=== PATIENT | female | born 1995 | race Caucasian/White ===

== ENCOUNTER 2018-06-19 16:11 | Emergency (ER) | payer MEDICAID, SELFPAY ==
[2018-06-19 16:45] VITALS: BP 133/73; PULSE 108; RESP 16; TEMP 39.4; O2SAT 99
[2018-06-19] MEDS: Ibuprofen 600 MG TAB PO (17:20)
--- NOTE | 2018-06-19 17:34 | W.ED.GENAD ---
Discharge Plan Disposition Patient Disposition: HOME Condition: Stable Discharge Details Chief Complaint: RespSymp Clinical Impression: Upper respiratory tract infection Primary Care Provider: Louisa Aguilar V ED Provider: Travon Coronado Home Meds and New Rx's Prescriptions: No Action acetaminophen [Mapap Extra Strength] 500 MG tablet 1,000 mg PO Q6H 5 Days Qty: 60 RF: 0 Ibuprofen [Motrin Ib] 200 MG Tablet 600 mg PO Q6H 5 Days Qty: 60 RF: 0 Discharge Instructions Instructions: Upper Respiratory Infection (ED) Additional Instructions: Feel free to return to the emergency department for any new or worsening symptoms otherwise stay well-hydrated and get plenty of rest during illness. You may use [id number] cough and cold medication such as Robitussin-DM, Tylenol cold and flu severe, or other symptomatic medications. If you are not improving over the next week please follow-up with your primary care provider for reassessment. Referrals: Louisa Aguilar MD [Primary Care Provider] - 1 week (If not improving) Discharge Data Discharge Date/Time-TO BE ENTERED AT DEPARTURE: 06/19/18 19:50 Medical Decision Making Patient presenting to the emergency department for chief complaint of cold symptoms for 1 day. Physical exam is consistent with upper respiratory tract infection. Patient is febrile and does state that she had a another upper respiratory tract infection that cleared up approximately 2 weeks ago. Patient does have some moderate anterior cervical lymphadenopathy so plan to check labs, give ibuprofen, and a liter of fluids and reassess patient. After review of labs which are nondiagnostic, negative mono test, and patient stating improvement after fluids and Motrin I feel that patient is safely able to be discharged for diagnosis of upper respiratory tract infection suspected viral etiology. After thorough discussion of diagnosis and plan of care with patient she states no further needs questions or concerns. Patient was encouraged to return to the emergency department for any new or significantly worsening of symptoms otherwise to follow-up with primary care in 1 week if not improving HPI General Mode of arrival: ambulatory. Date/Time Provider Initiated Documentation: 06/19/18 16:56. Limitations to Documentation: no limitations. Information obtained by: patient. History of Present Illness 22 year old F presents to the emergency department with the chief complaint of cold symptoms, described as moderate, with intensity rated at 8. Quality is described as aching, and is localized to the head, upper extremity and lower extremity. Patient started experiencing this day(s) (1) and it has been constant. No relieving factors improve symptom(s), No exacerbating factors reported . Patient did receive the following treatments prior to arrival, other (Tylenol last night) Related Data Home Medications Medication Instructions Recorded Confirmed Ibuprofen [Motrin Ib] 600 mg PO Q6H 5 Days #60 tablet 03/07/18 06/19/18 acetaminophen [Mapap Extra 1,000 mg PO Q6H 5 Days #60 tab 03/07/18 06/19/18 Strength] Previous Rx's Medication Instructions Recorded Ibuprofen [Motrin Ib] 600 mg PO Q6H 5 Days #60 tablet 03/07/18 acetaminophen [Mapap Extra 1,000 mg PO Q6H 5 Days #60 tab 03/07/18 Strength] Allergies Allergy/AdvReac Type Severity Reaction Status Date / Time oxytocin [From Pitocin] Allergy Intermediate Hives Unverified 06/19/18 16:48 General Stated Complaint: RespSymp AYSE: 3 Review of Systems Constitutional Reports body ache(s), Reports chills, Reports fever(s), Reports headache(s) and Reports malaise Eyes Denies eye discharge ENT Reports headache(s), Denies neck pain and Denies throat swelling Cardiovascular Denies chest pain and Denies dyspnea Respiratory Denies dyspnea Musculoskeletal Denies joint swelling and Denies neck pain Integumentary/Breasts Denies rash Neurologic Reports headache(s) Allergic/Immunologic Denies throat swelling PFSH Family History Mother Mental disorder Father No problems noted. Sister No problems noted. Social History Smoking/Tobacco Use Status: Never Exam Const General: cooperative, comfortable and no acute distress Orientation: alert and awake [facility] Head: normal to inspection, normocephalic and atraumatic Ears: hearing grossly normal bilaterally and TM's normal bilaterally General nose exam: external nose normal Face and sinus: no erythema, no edema and sinus tenderness frontal, ethmoid and maxillary Mouth: oral mucosae normal, no drooling, no muffled voice and no trismus Teeth and gingiva: dentition normal Throat: posterior oropharynx normal Neck Neck: normal visual inspection, full ROM, no meningeal signs, trachea midline, supple, no anterior neck swelling and lymphadenopathy (Anterior cervical bilateral) Resp Effort & Inspection: normal respiratory effort, able to speak in complete sentences and cough Quality of cough: dry Auscultation: clear to auscultation bilaterally Cardio Rate: regular rate Rhythm: regular rhythm Heart Sounds: S1 normal, S2 normal, normal S1 and S2, no click, no gallops, no murmurs and no rubs Skin General skin exam: no rashes or lesions noted and dry skin (warm) Neuro General: alert, awake, oriented x3, gait normal and moves all extremities Cognition: normal cognition Speech: speech normal Course Vital Signs Temperature 39.4 C H 06/19/18 16:45 Pulse 108 H 06/19/18 16:45 Respiratory Rate 16 06/19/18 16:45 Blood Pressure 133/73 06/19/18 16:45 Pulse Oximetry 99 06/19/18 16:45 Temperature 39.4 C H 06/19/18 16:45 Temperature Source Skin 06/19/18 16:45 Pulse 108 H 06/19/18 16:45 Respiratory Rate 16 06/19/18 16:45 Respiratory Effort Non-Labored 06/19/18 16:45 Blood Pressure 133/73 06/19/18 16:45 Blood Pressure Position Sitting 06/19/18 16:45 Pulse Oximetry 99 06/19/18 16:45 Oxygen Delivery Method Room Air 06/19/18 16:45 Oxygen Flow Rate 0 06/19/18 16:45 Pain Level 9 06/19/18 16:45
[2018-06-19] MEDS: Normal Saline 1,000 ML 1000 ML IV (17:35)
[2018-06-19 17:37] LABS: Abs Immature Grans 0.05 k/cumm (0.0-0.09); Absolute Basophil Count 0.04 k/cumm (0.0-0.2); Absolute Eosinophil Count 0.04 k/cumm (0.0-0.7); Absolute Lymphocyte Count 0.83 k/cumm (1.2-3.4); Absolute Neutrophil Count 7.22 k/cumm (1.2-6.7); Basophils % 0.5; Eosinophils % 0.5; HCT 40.8 % (36.0-46.0); HGB 14.1 g/dL (12.0-15.5); Immature Grans % 0.6; Lymphocytes % 9.3; Mean Corp. HGB Concentration 34.6 g/dL (32.0-36.0); Mean Corpuscular Hemoglobin 28.8 pg (27.0-33.0); Mean Corpuscular Volume 83.3 fL (80-95); Mean Platelet Volume 8.9 fL (8.0-11.0); Monocytes % 7.9; Neutrophils % 81.2; Platelet Count 243 x1000/uL (130-400); RBC Distribution Width 13.3 % (11.7-14.6); White Blood Cell Count 8.88 k/cumm (4.4-10.8)
--- NOTE | 2018-06-19 17:38 | ED.GENADUL_ITS ---
Discharge Plan Disposition Patient Disposition: HOME Condition: Stable Discharge Details Chief Complaint: RespSymp Clinical Impression: Upper respiratory tract infection Primary Care Provider: Louisa Aguilar V ED Provider: Travon Coronado Home Meds and New Rx's Prescriptions: No Action acetaminophen [Mapap Extra Strength] 500 MG tablet 1,000 mg PO Q6H 5 Days Qty: 60 RF: 0 Ibuprofen [Motrin Ib] 200 MG Tablet 600 mg PO Q6H 5 Days Qty: 60 RF: 0 Discharge Instructions Instructions: Upper Respiratory Infection (ED) Additional Instructions: Feel free to return to the emergency department for any new or worsening symptoms otherwise stay well-hydrated and get plenty of rest during illness. You may use [id number] cough and cold medication such as Robitussin-DM, Tylenol cold and flu severe, or other symptomatic medications. If you are not improving over the next week please follow-up with your primary care provider for reassessment. Referrals: Louisa Aguilar MD [Primary Care Provider] - 1 week (If not improving) Discharge Data Discharge Date/Time-TO BE ENTERED AT DEPARTURE: 06/19/18 19:50 Medical Decision Making Patient presenting to the emergency department for chief complaint of cold symptoms for 1 day. Physical exam is consistent with upper respiratory tract infection. Patient is febrile and does state that she had a another upper respiratory tract infection that cleared up approximately 2 weeks ago. Patient does have some moderate anterior cervical lymphadenopathy so plan to check labs , give ibuprofen, and a liter of fluids and reassess patient. After review of labs which are nondiagnostic, negative mono test, and patient stating improvement after fluids and Motrin I feel that patient is safely able to be discharged for diagnosis of upper respiratory tract infection suspected viral etiology. After thorough discussion of diagnosis and plan of care with patient she states no further needs questions or concerns. Patient was encouraged to return to the emergency department for any new or significantly worsening of symptoms otherwise to follow-up with primary care in 1 week if not improving HPI General Mode of arrival: ambulatory . Date/Time Provider Initiated Documentation: 06/19/18 16:56 . Limitations to Documentation: no limitations . Information obtained by: patient . History of Present Illness 22 year old F presents to the emergency department with the chief complaint of cold symptoms, described as moderate, with intensity rated at 8. Quality is described as aching, and is localized to the head, upper extremity and lower extremity. Patient started experiencing this day(s) (1) and it has been constant. No relieving factors improve symptom(s), No exacerbating factors reported . Patient did receive the following treatments prior to arrival, other (Tylenol last night) Related Data Home Medications Medication Instructions Recorded Confirmed Ibuprofen [Motrin Ib] 600 mg PO Q6H 5 Days #60 tablet 03/07/18 06/19/18 acetaminophen [Mapap Extra 1,000 mg PO Q6H 5 Days #60 tab 03/07/18 06/19/18 Strength] Previous Rx's Medication Instructions Recorded Ibuprofen [Motrin Ib] 600 mg PO Q6H 5 Days #60 tablet 03/07/18 acetaminophen [Mapap Extra 1,000 mg PO Q6H 5 Days #60 tab 03/07/18 Strength] Allergies Allergy/AdvReac Type Severity Reaction Status Date / Time oxytocin [From Pitocin] Allergy Intermediate Hives Unverified 06/19/18 16:48 General Stated Complaint: RespSymp AYSE: 3 Review of Systems Constitutional Reports body ache(s), Reports chills, Reports fever(s), Reports headache(s) and Reports malaise Eyes Denies eye discharge ENT Reports headache(s), Denies neck pain and Denies throat swelling Cardiovascular Denies chest pain and Denies dyspnea Respiratory Denies dyspnea Musculoskeletal Denies joint swelling and Denies neck pain Integumentary/Breasts Denies rash Neurologic Reports headache(s) Allergic/Immunologic Denies throat swelling PFSH Family History Mother Mental disorder Father No problems noted. Sister No problems noted. Social History Smoking/Tobacco Use Status: Never Exam Const General: cooperative, comfortable and no acute distress Orientation: alert and awake [facility] Head: normal to inspection, normocephalic and atraumatic Ears: hearing grossly normal bilaterally and TM's normal bilaterally General nose exam: external nose normal Face and sinus: no erythema, no edema and sinus tenderness frontal, ethmoid and maxillary Mouth: oral mucosae normal, no drooling, no muffled voice and no trismus Teeth and gingiva: dentition normal Throat: posterior oropharynx normal Neck Neck: normal visual inspection, full ROM, no meningeal signs, trachea midline, supple, no anterior neck swelling and lymphadenopathy (Anterior cervical bilateral) Resp Effort & Inspection: normal respiratory effort, able to speak in complete sentences and cough Quality of cough: dry Auscultation: clear to auscultation bilaterally Cardio Rate: regular rate Rhythm: regular rhythm Heart Sounds: S1 normal, S2 normal, normal S1 and S2, no click, no gallops, no murmurs and no rubs Skin General skin exam: no rashes or lesions noted and dry skin (warm) Neuro General: alert, awake, oriented x3, gait normal and moves all extremities Cognition: normal cognition Speech: speech normal Course Vital Signs Temperature 39.4 C H 06/19/18 16:45 Pulse 108 H 06/19/18 16:45 Respiratory Rate 16 06/19/18 16:45 Blood Pressure 133/73 06/19/18 16:45 Pulse Oximetry 99 06/19/18 16:45 Temperature 39.4 C H 06/19/18 16:45 Temperature Source Skin 06/19/18 16:45 Pulse 108 H 06/19/18 16:45 Respiratory Rate 16 06/19/18 16:45 Respiratory Effort Non-Labored 06/19/18 16:45 Blood Pressure 133/73 06/19/18 16:45 Blood Pressure Position Sitting 06/19/18 16:45 Pulse Oximetry 99 06/19/18 16:45 Oxygen Delivery Method Room Air 06/19/18 16:45 Oxygen Flow Rate 0 06/19/18 16:45 Pain Level 9 06/19/18 16:45
[2018-06-19 17:41] LABS: Mono Screening Negative (Negative)
[2018-06-19 17:52] LABS: ALT 31 U/L (12-78); AST 19 U/L (15-37); Albumin 3.7 g/dL (3.4-5.0); Alkaline Phosphatase 129 U/L (46-116); Anion Gap 8.5 mmol/L (3-11); BUN 9 mg/dL (7-18); Bilirubin, Total 0.4 mg/dL (0.2-1.0); CO2 26.5 mmol/L (21.0-32.0); CREATININE 0.74 mg/dL (0.55-1.02); Calcium 8.8 mg/dL (8.5-10.1); Chloride 100 mmol/L (98-107); Glucose 95 mg/dL (70-100); Potassium 3.4 mmol/L (3.5-5.1); Sodium 135 mmol/L (136-145); Total Protein 8.2 g/dL (6.4-8.2)
[2018-06-19 18:20] VITALS: TEMP 38.2
[2018-06-19 18:24] VITALS: TEMP 38.2
[2018-06-19 19:14] VITALS: BP 110/72; PULSE 103; RESP 16; TEMP 37.9
== END 2018-06-19 19:50 | disposition home or self-care (01) ==
PROVIDERS: Emergency Provider Nurse Practitioner Family; PCP Family Medicine
DX: J06.9 Acute upper respiratory infection, unspecified (principal)
CPT/HCPCS: 36415; 80053; 96360; 99283; 85025; 86308

== ENCOUNTER 2019-02-22 21:56 | Outpatient (REF) | payer MEDICAID, SELFPAY | END 2019-02-22 22:16 | LOC: NCHCN 21:56 | PROVIDERS: PCP Family Medicine; Visit Provider Nurse Practitioner Family | DX: J06.9 Acute upper respiratory infection, unspecified (principal) | CPT/HCPCS: 87077; 87070; 87186 ==

== ENCOUNTER 2019-07-02 14:51 | Outpatient (REF) | payer MEDICAID, SELFPAY | END 2019-07-02 15:11 | LOC: NCHCN 14:51 | PROVIDERS: PCP Family Medicine; Visit Provider Physician Assistant Medical | DX: R30.0 Dysuria (principal) | CPT/HCPCS: 87077; 87086; 87186 ==

== ENCOUNTER 2019-08-10 09:36 | Emergency (ER) | payer MEDICAID, SELFPAY ==
[2019-08-10] VITALS (39 sets, daily range): BP systolic 67–119; BP diastolic 47–78; PULSE 59–89; RESP 13–26; TEMP 36.8–37.2; O2SAT 93–100
--- NOTE | 2019-08-10 09:59 | W.ED.GENAD ---
Discharge Plan Disposition Patient Disposition: HOME Condition: Improving Discharge Details Chief Complaint: Dizzy/Sync Clinical Impression: UTI (urinary tract infection), Gastroenteritis, Vertigo Primary Care Provider: Danya Sheets ED Provider: Yara Quijano Home Meds and New Rx's Prescriptions: New cephalexin [Keflex] 500 mg capsule 500 mg PO BID Qty: 10 RF: 0 ondansetron HCl [Zofran] 4 mg tablet 4 mg PO Q8H PRN (Reason: nausea and vomiting) Qty: 7 RF: 0 meclizine 25 mg tablet 25 mg PO TID PRN (Reason: dizziness) Qty: 7 RF: 0 No Action Control RF: 0 Discharge Instructions Instructions: Urinary Tract Infection in Women (ED), Vertigo (ED), Gastroenteritis (ED) Additional Instructions: Drink plenty of fluids as discussed, small sips of fluids are encouraged versus drinking quickly. Use nausea medication if needed for symptomatic relief. Use antibiotic as prescribed. Use meclizine if needed for dizziness if it returns. Recheck with primary care doctor for any persistence lasting greater than 3 days. Urine culture pending. Please follow-up with PCP for this result. For any abdominal pain, return of symptoms, worsening symptoms or alarming symptoms have immediate reevaluation in the emergency room as discussed Discharge Data Discharge Date/Time-TO BE ENTERED AT DEPARTURE: 08/10/19 13:35 Medical Decision Making This is a 23-year-old patient who presents to the emergency room for onset of nausea vomiting and diarrhea which began this morning when she awoke. Patient reports she also has notable dizziness which is significantly worse with range of motion of her head. Patient reports feeling dehydrated at this time. Patient does admit to abdominal pain which is intermittent and relieves after vomiting worse prior to vomiting. Patient denies any blood in her vomitus. Denies any fevers. She does report she woke this morning sweating. She denies chest pain. Patient is on control and is not concerned with possibility of . On exam patient does appear dehydrated but has a benign abdominal exam. Lung and breath sounds are clear. Patient is in no apparent distress at this time but does have notable positional dizziness. Neurologic exam is normal. IV placed, IV fluids ordered as well as nausea medication and meclizine when able to tolerate p.o.'s. Labs ordered as well as urinalysis and testing. Reevaluation of this patient she is feeling entirely relieved. She has no persistent dizziness after meclizine. She has urinated twice since arrival after IV fluids. Her abdominal pain is resolved. She has a persistently benign abdominal exam. At this time I feel patient is appropriate for discharge home. Patient is reporting urinary urgency, dysuria and odor which she did not originally report. I did review the urinalysis with the patient which does reveal some leukocyte esterase. Given patient's reported discomfort her preference is antibiotic treatment at this time for possible UTI. Will discharge patient with a plan of Keflex for 5 days, Zofran for symptomatic relief and meclizine for dizziness. Likely this patient has a gastroenteritis with associated dizziness and dehydration and possible UTI. Patient agrees with plan of care. Mother agrees with plan of care. Encouraged follow-up with PCP. The patient was stable and requested discharge. Prior to discharge, my usual and customary return precautions were reviewed with the patient - this included follow-up instructions and reasons to return to the Emergency Department if conditions worsens, does not improve as expected, or other new concerns arise. HPI General Date/Time Provider Initiated Documentation: 08/10/19 09:43. HPI Narrative: 23-year-old patient presents for complaints of nausea and vomiting associated with diarrhea which began this morning after waking. Patient reports she awoke at 7 and back to bed woke up again around 745 and was mildly sweaty. She vomited several times and had associated diarrhea. Patient does report upper abdominal pain prior to vomiting. Patient reports after vomiting pain lasted a few more minutes then resolved. Patient denies abdominal pain at this time. Patient denies chest pain, difficulty breathing or shortness of breath. Patient is also complaining of significant dizziness. Patient reports she is able to ambulate however dizziness is very bothersome significantly worse when ranging her head towards the left. Patient reports with her head straight her dizziness is minimal. Patient denies any vision change or blurred vision. Patient denies sore throat, cough or upper respiratory symptoms. Denies any fevers or chills. Patient denies urinary urgency, frequency or dysuria. Patient is on control. Related Data Home Medications Medication Instructions Recorded Confirmed Control 08/10/19 cephalexin [Keflex] 500 mg PO BID #10 cap 08/10/19 meclizine 25 mg PO TID PRN #7 tab 08/10/19 ondansetron HCl [Zofran] 4 mg PO Q8H PRN #7 tab 08/10/19 Previous Rx's Medication Instructions Recorded cephalexin [Keflex] 500 mg PO BID #10 cap 08/10/19 meclizine 25 mg PO TID PRN #7 tab 08/10/19 ondansetron HCl [Zofran] 4 mg PO Q8H PRN #7 tab 08/10/19 Allergies Allergy/AdvReac Type Severity Reaction Status Date / Time oxytocin [From Pitocin] Allergy Intermediate Hives Unverified 08/10/19 09:51 General Stated Complaint: Dizzy/Sync AYSE: 3 Review of Systems All systems reviewed & are unremarkable except as noted in HPI and below Constitutional Constitutional: Reports chills, Denies fatigue, Denies fever(s), Denies headache(s) and Denies malaise ENT Ears, Nose, Mouth, and Throat: Denies headache(s) Neurologic Neurologic: Denies headache(s) Endocrine Endocrine: Denies fatigue [facility] Medical History (Updated 09/29/18 @ 08:27 by Cydney Pollock NP) examination or test, positive result (Acute 07/08/15) Surgical History (Updated 09/29/18 @ 08:27 by Cydney Pollock NP) Previous section (Chronic) S/P (Acute) Social History Smoking/Tobacco Use Status: Never Alcohol Intake: current Alcohol Intake frequency: a few times a month Drug use: Never Do you feel safe at home: Yes Do you feel safe in your relationship?: Yes Exam Narrative Exam Narrative: CONST: Healthy appearing patient, in no acute distress. Well hydrated. Alert and alert. HENMT: Head nomocephalic, normal to inspection. Atraumatic. Hearing grossly normal. External ear canal no erythema or swelling. TM normal bilaterally. Nose normal to inspection. No rhinnorhea. Normal facial exam. Oral mucosa normal. Tounge normal. Dentition normal. Normal posterior oropharynx. Uvula midline. Patients position of comfort is with head straight. When moving head toward the left increase in dizziness noted. EYES: General normal appearance. Alignment normal. Eyelids normal. Conjunctiva normal. Sclera normal. PERRL. NECK: Normal visual inspection. FROM. No lymphadenopathy. Trachea midline. No Midline tenderness. No meningeal signs. CHEST: Normal insepection of the chest. RESP: Normal respiratory effort. Speaking full sentences. No cough. No wheezing. No retractions. Clear to auscaltation. Breath sound equal and present bilaterally. CARDIO: No JVD. Normal PMI. Regular Rate. Regular Rhythm. Normal peripheral pulses. GI: Normal inspection of abdomen. No distension. Soft. Nontender. Bowel sounds present in all 4 quadrants. No rebound. No gaurding. NEURO: Alert and awake. Speech clear. Alert and oriented x 3. Speech is clear. Cranial nerves intact as tested III - XI. Normal Dcfwkn-[id number] test. No pronator drift. Normal heel-vazquez test. No Nystagmus. Strength intact in all extremities. Sensation intact in all extremities. PSYCH: Normal affect. Cooperative. Course Vital Signs Vital signs: Vital Signs Temperature 37.2 C 08/10/19 09:46 Pulse 87 08/10/19 09:46 Respiratory Rate 26 H 08/10/19 09:46 Blood Pressure 119/78 08/10/19 09:46 Pulse Oximetry 100 08/10/19 09:46 Temperature 37.2 C 08/10/19 09:46 Temperature Source Skin 08/10/19 09:46 Pulse 87 08/10/19 09:46 Respiratory Rate 26 H 08/10/19 09:46 Blood Pressure 119/78 08/10/19 09:46 Blood Pressure Position Supine 08/10/19 09:46 Pulse Oximetry 100 08/10/19 09:46 Oxygen Delivery Method Room Air 08/10/19 09:46 Oxygen Flow Rate 0 08/10/19 09:46 Pain Level 5 08/10/19 09:46
[2019-08-10] MEDS: Normal Saline 1,000 ML 1000 ML IV (10:00)
[2019-08-10] MEDS: Ondansetron 4 MG/2 ML VIAL IVP (10:05)
[2019-08-10 10:43] LABS: Abs Immature Grans 0.02 k/cumm (0.0-0.09); Absolute Basophil Count 0.02 k/cumm (0.0-0.2); Absolute Eosinophil Count 0.32 k/cumm (0.0-0.7); Absolute Lymphocyte Count 2.04 k/cumm (1.2-3.4); Absolute Monocyte Count 0.43 k/cumm (0.11-0.7); Absolute Neutrophil Count 4.15 k/cumm (1.2-6.7); Basophils % 0.3; Eosinophils % 4.6; HCT 40.8 % (36.0-46.0); HGB 13.9 g/dL (12.0-15.5); Immature Grans % 0.3; Lymphocytes % 29.2; Mean Corp. HGB Concentration 34.1 g/dL (32.0-36.0); Mean Corpuscular Volume 82.1 fL (80-95); Mean Platelet Volume 9.2 fL (8.0-11.0); Monocytes % 6.2; Neutrophils % 59.4; Platelet Count 332 x1000/uL (130-400); RBC 4.97 m/cumm (4.00-5.20); RBC Distribution Width 12.7 % (11.7-14.6); White Blood Cell Count 6.98 k/cumm (4.4-10.8)
[2019-08-10 11:02] LABS: ALT 18 U/L (14-59); AST 12 U/L (15-37); Albumin 3.9 g/dL (3.4-5.0); Alkaline Phosphatase 109 U/L (46-116); Anion Gap 14.8 mmol/L (3-11); BUN 9 mg/dL (7-18); Bilirubin, Total 0.3 mg/dL (0.2-1.0); CO2 21.2 mmol/L (21.0-32.0); CREATININE 0.67 mg/dL (0.55-1.02); Calcium 9.2 mg/dL (8.5-10.1); Chloride 106 mmol/L (98-107); Glucose 118 mg/dL (74-106); Lipase 108 U/L (73-393); Potassium 3.3 mmol/L (3.5-5.1); Sodium 142 mmol/L (136-145); Total Protein 7.7 g/dL (6.4-8.2)
[2019-08-10 11:10] LABS: HCG Qual (Serum) Negative
[2019-08-10 11:15] LABS: Bilirubin Negative (Negative); Blood Negative (Negative); Clarity Sl Cloudy (Clear); Glucose Negative (Negative); Ketones Negative (Negative); Leukocyte Esterase Trace (Negative); Nitrite Negative (Negative); pH 8.5 (5-8)
[2019-08-10 11:27] LABS: RBC Negative HPF (0-2)
[2019-08-10 11:28] LABS: Bacteria Few HPF (Negative); C & S Indicated? Yes; Casts Negative LPF (Negative); Crystals Few Amorphous HPF (Negative); Epithelial Cells Few HPF (Negative); Mucus Trace (Negative)
[2019-08-10] MEDS: Meclizine 25 MG TAB PO (12:11)
== END 2019-08-10 13:35 | disposition home or self-care (01) ==
PROVIDERS: Emergency Provider Physician Assistant; PCP Physician Assistant Medical
DX: N39.0 Urinary tract infection, site not specified (principal); K52.9 Noninfective gastroenteritis and colitis, unspecified; R42 Dizziness and giddiness; E86.0 Dehydration
CPT/HCPCS: 36415; 80053; 83690; 87449; 96361; 96374; 99284; 81003; 81015; 84703; 85025; 87086; J2405

== ENCOUNTER 2019-08-14 20:44 | Outpatient (REF) | payer MEDICAID, SELFPAY | END 2019-08-14 21:04 | LOC: NCHCN 20:44 | PROVIDERS: PCP Physician Assistant Medical; Visit Provider Nurse Practitioner Family | DX: R30.0 Dysuria (principal); R42 Dizziness and giddiness | CPT/HCPCS: 87086 ==

== ENCOUNTER 2020-07-25 18:07 | Outpatient (REF) | payer MEDICAID, SELFPAY ==
[2020-07-27 14:51] LABS: SARS-CoV-2 RNA Not Detected (NotDetected); SARS-CoV-2 RNA Source Nasal/Nares
== END 2020-07-25 18:27 ==
LOC: NCHCN 18:07
PROVIDERS: PCP Physician Assistant Medical; Visit Provider Physician Assistant Medical
DX: J02.9 Acute pharyngitis, unspecified (principal)
CPT/HCPCS: U0003; 87081

== ENCOUNTER 2021-04-08 10:37 | Outpatient (REF) | payer MEDICAID, SELFPAY ==
[2021-04-09 12:11] LABS: COVID-19 RT-PCR UVMMC Result Negative (Negative)
== END 2021-04-08 10:38 | disposition home or self-care (01) ==
LOC: LBN 10:37
PROVIDERS: PCP Physician Assistant Medical; Visit Provider Physician Assistant Medical
DX: J02.9 Acute pharyngitis, unspecified (principal); J06.9 Acute upper respiratory infection, unspecified; Z20.822 Contact with and (suspected) exposure to COVID-19
CPT/HCPCS: U0003; 87070

== ENCOUNTER 2021-08-18 14:33 | Outpatient (REF) | payer MEDICAID, SELFPAY ==
[2021-08-19 12:59] LABS: COVID-19 RT-PCR UVMMC Result Negative (Negative)
== END 2021-08-18 14:34 | disposition home or self-care (01) ==
LOC: LBN 14:33
PROVIDERS: PCP Physician Assistant Medical; Visit Provider Nurse Practitioner Family
DX: Z20.822 Contact with and (suspected) exposure to COVID-19 (principal); J02.9 Acute pharyngitis, unspecified
CPT/HCPCS: U0003

== ENCOUNTER 2021-08-31 21:00 | Outpatient (REF) | payer MEDICAID, SELFPAY ==
[2021-09-01 23:21] LABS: COVID-19 RT-PCR UVMMC Result Negative (Negative)
== END 2021-08-31 21:01 | disposition home or self-care (01) ==
LOC: LBN 21:00
PROVIDERS: PCP Physician Assistant Medical; Visit Provider Family Medicine
DX: Z20.822 Contact with and (suspected) exposure to COVID-19 (principal); J06.9 Acute upper respiratory infection, unspecified
CPT/HCPCS: U0003

== ENCOUNTER 2022-01-04 13:51 | Outpatient (REF) | payer MEDICAID, SELFPAY | END 2022-01-04 13:52 | disposition home or self-care (01) | LOC: LBN 13:51 | PROVIDERS: PCP Physician Assistant Medical; Visit Provider Nurse Practitioner Family | DX: R39.89 Other symptoms and signs involving the genitourinary system (principal) | CPT/HCPCS: 87077; 87086; 87186 ==

== ENCOUNTER 2022-05-10 20:32 | Emergency (ER) | payer MEDICAID, SELFPAY ==
[2022-05-10 20:42] VITALS: BP 126/69; PULSE 82; RESP 18; TEMP 37.4; O2SAT 95
--- NOTE | 2022-05-10 21:01 | ED.GENADUL_ITS ---
Discharge Plan Disposition Patient Disposition: HOME Condition: Stable Discharge Details Clinical Impression: Upper respiratory infection, viral Primary Care Provider: Danya Sheets ED Provider: Travon Coronado Home Meds and New Rx's Prescriptions: Continued medroxyprogesterone 150 mg/mL Suspension IM Control Discharge Instructions Instructions: Upper Respiratory Infection (ED) Additional Instructions: You may continue to use [id number] pain and cough and cold medication as needed for your symptoms. Stay well-hydrated and get plenty of rest and we will contact you if your COVID results are positive. As discussed if you have any new or significant worsening of symptoms return the emergency department for reassessment. Stand Alone Forms: Work Release Referrals: Danya Sheets PA [Primary Care Provider] - (If not improving please see your primary care provider ) Discharge Data Discharge Date/Time-TO BE ENTERED AT DEPARTURE: 05/10/22 21:16 Medical Decision Making Patient presenting to the emergency department for cold symptoms. 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 Patient reports that she has taken a home COVID test which is negative. Physical exam is consistent with viral upper respiratory tract illness with no worrisome findings, no findings to suggest meningitis, pneumonia, severe decompensation, hypoxia, or life-threatening illness. Discussed with patient conservative management of symptoms along with rest. We will perform PCR COVID testing given patient occupation and due to the patient's report of significant headache we will give patient IM Toradol. Patient negative for COVID-19 after discussion of diagnosis and plan of care patient has no further needs, questions, or concerns and states clear understanding to return to the emergency department for any worsening symptoms. This documentation was generated using [employer] system, please disregard any oddities of phrase or misspellings. Lab Data Lab results reviewed: Yes I reviewed the patient's lab results. HPI General Mode of arrival: ambulatory . Date/Time Provider Initiated Documentation: 05/10/22 20:47 . Limitations to Documentation: no limitations . Information obtained by: patient and RN notes reviewed . History of Present Illness 26 year old F presents to the emergency department with the chief complaint of cold symptoms, described as moderate, with intensity rated at 8. Quality is described as aching, and is localized to the head. Patient reports no radiation. Patient started experiencing this day(s) (2) and it has been constant. No relieving factors improve symptom(s), No exacerbating factors reported . Patient did receive the following treatments prior to arrival, cold therapy Related Data Home Medications Medication Instructions Recorded Confirmed Control 08/10/19 medroxyprogesterone 150 mg/mL mg IM 05/10/22 intramuscular suspension Allergies Allergy/AdvReac Type Severity Reaction Status Date / Time oxytocin [From Pitocin] Allergy Intermediate Hives Unverified 05/10/22 20:44 General Stated Complaint: RespSymp AYSE: 4 Review of Systems Constitutional Constitutional: Reports body ache(s), Reports chills, Reports fever(s), Reports headache(s) and Reports malaise Eyes Eyes: Denies eye discharge ENT Ears, Nose, Mouth, and Throat: Reports as per HPI, Denies ear discharge, Denies otalgia, Reports headache(s), Reports nasal congestion, Denies neck pain, Reports sinus pressure, Reports sore throat and Denies throat swelling Cardiovascular Cardiovascular: Denies chest pain and Denies dyspnea Respiratory Respiratory: Reports cough and Denies dyspnea Musculoskeletal Musculoskeletal: Denies joint swelling and Denies neck pain Integumentary/Breasts Skin/Breast: Denies rash Neurologic Neurologic: Reports headache(s) Allergic/Immunologic Allergic/Immunologic: Denies throat swelling PFSH All Active Problems (Updated 05/11/22 @ 09:00 by Travon Coronado NP) Upper respiratory infection, viral (Acute) Medical History (Updated 05/11/22 @ 09:00 by Travon Coronado NP) examination or test, positive result (07/08/15) Surgical History (Updated 05/11/22 @ 09:00 by Travon Coronado NP) Previous section S/P Family History Mother Mental disorder depression with medications Father No problems noted. Sister No problems noted. Social History Smoking/Tobacco Use Status: Never Smoking risk assessment performed?: Yes Alcohol Intake: current Alcohol Intake frequency: a few times a month Drug use: Never Substance use type: does not use Do you feel safe at home: Yes Do you feel safe in your relationship?: Yes Exam Const General: cooperative, comfortable and no acute distress Orientation: alert and awake [facility] Head: normal to inspection, normocephalic and atraumatic Ears: hearing grossly normal bilaterally and TM's normal bilaterally General nose exam: external nose normal Face and sinus: no erythema Mouth: oral mucosae normal, no drooling, no muffled voice and no trismus Throat: posterior oropharynx normal Neck Neck: normal visual inspection, full ROM, no lymphadenopathy, no meningeal signs, trachea midline and supple Resp Effort & Inspection: normal respiratory effort and able to speak in complete sentences Auscultation: clear to auscultation bilaterally Cardio Rate: regular rate Rhythm: regular rhythm Heart Sounds: S1 normal, S2 normal, normal S1 and S2, no click, no gallops, no murmurs and no rubs Skin General skin exam: no rashes or lesions noted and dry skin (warm) Neuro General: patient alert, patient awake, patient oriented x3, gait normal and moves all extremities Cognition: normal cognition Speech: speech normal Course Vital Signs Vital signs: Vital Signs Temperature 37.4 C 05/10/22 20:42 Pulse 82 05/10/22 20:42 Respiratory Rate 18 05/10/22 20:42 Blood Pressure 126/69 05/10/22 20:42 Pulse Oximetry 95 05/10/22 20:42 Temperature 37.4 C 05/10/22 20:42 Temperature Source Oral 05/10/22 20:42 Pulse 82 05/10/22 20:42 Respiratory Rate 18 05/10/22 20:42 Respiratory Effort Non-Labored 05/10/22 20:46 Blood Pressure 126/69 05/10/22 20:42 Pulse Oximetry 95 05/10/22 20:42 Pain Level 7 05/10/22 20:42
[2022-05-10 21:16] VITALS: BP 118/76; PULSE 95; RESP 18; O2SAT 96
[2022-05-10] MEDS: Ketorolac 30 MG/ML VIAL IM (21:16)
[2022-05-10 21:17] LABS: Source Nasal/Nares
[2022-05-10 22:00] LABS: COVID-19 PCR Negative (Negative)
== END 2022-05-10 21:16 | disposition home or self-care (01) ==
PROVIDERS: Emergency Provider Nurse Practitioner Family; PCP Physician Assistant Medical
DX: J06.9 Acute upper respiratory infection, unspecified (principal); Z20.822 Contact with and (suspected) exposure to COVID-19
CPT/HCPCS: 87635; 96372; 99284; J1885

== ENCOUNTER 2025-05-29 19:21 | Emergency (ER) | payer MEDICAID, SELFPAY ==
[2025-05-29 19:26] VITALS: BP 137/89; PULSE 86; RESP 18; TEMP 36.8; O2SAT 98
--- NOTE | 2025-05-29 20:06 | ED.GENADUL_ITS ---
Discharge Plan Disposition Patient Disposition: Home Condition: Stable Discharge Details Clinical Impression: Sprain of right ankle Primary Care Provider: Danya Sheets ED Provider: Robi Marcum Discharge Instructions Instructions: Ankle Sprain ED Additional Instructions: You were seen in the emergency department for the sprain of your right ankle, there is no fracture seen on your x-rays. Please rest, ice, compress and elevate the ankle often over the next few days. Please use therapeutic dosing of Tylenol (acetamenophen) & Advil (ibuprofen) in an alternating fashion as follows: Take 1000mg of Tylenol every 6 hours without missing doses- that is 4 times per day. [place] in between the Tylenol dosings, take 400-600mg of Advil also on a 6 hour schedule, that is also 4 times per day. The daily maximum dosing of Tylenol is 4000mg, and the daily maximum dosing of Advil is 2400mg. This is safe to do for weeks. Please note that some common cold medications & prescription pain medications may contain acetamenophen and you need to read OTC drug labels and factor that in to maximum daily dosings. Follow-up with orthopedics for pain lasting longer than 2 weeks. Stand Alone Forms: Work Release Referrals: Danya Sheets PA [Primary Care Provider, Medicine] Discharge Data Discharge Date/Time-TO BE ENTERED AT DEPARTURE: 05/29/25 20:41 HPI General Date/Time Provider Initiated Documentation: 05/29/25 19:32 . HPI Narrative: 29 year-old female presents to ED today by POV/ambulating with a chief complaint of R ankle pain from slipping/rolling her ankle walking downstairs with onset yesterday- endorses some tingling in toes. Quality described as sore, worse with ambulation, no radiation to ecchymosis, inability to ambulate, deformity, proximal pain. Severity is described as moderate. Palliating factors include nothing specific attempted. Provoking factors include nothing specific. Patient not anticoagulated. Related Data Allergies Allergy/AdvReac Type Severity Reaction Status Date / Time oxytocin (From Pitocin) Allergy Intermediate Hives Unverified 05/29/25 19:31 General Stated Complaint: Orthopedic AYSE: 4 Review of Systems All systems reviewed & are unremarkable except as noted in HPI and below Exam Narrative Exam Narrative: GENERAL APPEARANCE: Well-nourished, non-toxic, awake and alert, atraumatic, no acute distress. SKIN: Warm, pink, dry, intact, without rashes/lesions/ulcerations. HEAD: Normocephalic, atraumatic, normal hair distribution for gender/age. EYES: Normal conjunctiva, no exudates on lids/lashes. ENT: Nares patent, no circumoral cyanosis, no facial swelling NECK: Supple, trachea midline, painless cervical ROM. LUNGS/CHEST: Non-labored respirations, normal A/P diameter, symmetrical expansion, no chest wall deformity HEART (CV/PV): Regular rate, R dorsalis pedis pulse 2+, no peripheral edema, no JVD. ABDOMEN: Soft, non-distended, no guarding. MSK: Normal ROM, no swelling/deformity to bilateral UEs or LEs, moving all extremities without weakness, R ankle has mild tenderness mild swelling, no ecchymosis, sensation intact, no cyanosis, spine midline without tenderness, normal curvature. NEURO: Mental Status AAOx4 - alert to person, place, time, events No facial droop, no forehead involvement. Motor: No focal weakness - strength 5/5 in bilateral UEs and LEs, proximal and distal, symmetric. Sensory: sensation intact to light touch globally. Gait mildly antalgic. PSYCH: euthymic, cooperative, pleasant, appropriate speech Course Vital Signs Vital signs: Vital Signs Temperature 36.8 C 05/29/25 19:26 Pulse 86 05/29/25 19:26 Respiratory Rate 18 05/29/25 19:26 Blood Pressure 137/89 05/29/25 19:26 Pulse Oximetry 98 05/29/25 19:26 Temperature 36.8 C 05/29/25 19:26 Pulse 86 05/29/25 19:26 Respiratory Rate 18 05/29/25 19:26 Blood Pressure 137/89 05/29/25 19:26 Pulse Oximetry 98 05/29/25 19:26 Oxygen Delivery Method Room Air 05/29/25 19:26 Oxygen Flow Rate 0 05/29/25 19:26 Pain Level 6 05/29/25 19:26 Medical Decision Making This dictation utilizes [id number] dictation software and may contain unedited grammatical errors. 29 year-old female presents to ED today by POV/ambulating with a chief complaint of R ankle pain from slipping/rolling her ankle walking downstairs with onset yesterday- endorses some tingling in toes. Quality described as sore, worse with ambulation, no radiation to ecchymosis, inability to ambulate, deformity, proximal pain. Severity is described as moderate. Palliating factors include nothing specific attempted. Provoking factors include nothing specific. Patients' medical history: noncontributory. Family and social history: noncontributory. Pertinent exam findings / vital signs include right lateral malleoli are tenderness and right lateral metatarsal tenderness without range of motion deficit, able to ambulate, right dorsalis pedis pulse 2+, sensation intact, no fibular head tenderness. Differential / pathologies of concern include ankle sprain, foot sprain, fracture. Diagnostic studies of: -X-ray ankle and foot-no acute fracture seen. Interventions of: -Otilio wrap and recommend RICE therapy and therapy [place] Tylenol and ibuprofen. ED Course/Assessment/Plan: 29-year-old female presents with right foot and ankle pain after rolling her ank le last night has been ambulating, declines Tylenol and ibuprofen here recommend RICE therapy, follow-up with orthopedics for any pain lasting longer than 2 weeks. Findings not consistent with fracture or neurovascular compromise. Disposition of Sprain of Right Ankle. Patient verbalized understanding of the plan and return to ED criteria and engaged in shared decision making. Medical Records Medical records reviewed: Yes I reviewed the patient's medical records. Imaging Data Radiologic Study: Attestation: I personally reviewed and interpreted this imaging study as follows: Imaging: X-Ray Radiologist's impression: Exam: XR Right Foot Exam date and time: 05/29/2025 8:03 PM Age: 29 years old Clinical indication: Other: R 5th mt pain TECHNIQUE: Imaging protocol: Radiologic exam of the right foot. Views: 3 or more views. COMPARISON: No relevant prior studies available. FINDINGS: Bones/joints: Normal. Soft tissues: Normal. IMPRESSION: No acute findings. Dictated and Authenticated by: Jimbo Tam MD. Radiologic Study #2: Attestation: I personally reviewed and interpreted this imaging study as follows: Imaging: X-Ray Radiologist's impression: Exam: XR Right Ankle Exam date and time: 05/29/2025 8:06 PM Age: 29 years old Clinical indication: Other: R ankle pain, lateral mal. TECHNIQUE: Imaging protocol: Radiologic exam of the right ankle. Views: 3 or more views. COMPARISON: CR XR FOOT RT COMPLETE 05/29/2025 8:03 PM FINDINGS: Bones/joints: Normal. Soft tissues: Normal. IMPRESSION: No acute findings. Dictated and Authenticated by: Jimbo Tam MD. [facility] All Active Problems (Updated 05/29/25 @ 20:16 by DAVID Guzman) Sprain of right ankle (Acute) Medical History examination or test, positive result (07/08/15) Surgical History Previous section S/P Family History Mother Mental disorder depression with medications Father No problems noted. Sister No problems noted. Social History Smoking/Tobacco Use Status: Never Smoking risk assessment performed?: Yes Alcohol Intake: current Alcohol Intake frequency: a few times a month Drug use: Never Substance use type: does not use Do you feel safe at home: Yes Do you feel safe in your relationship?: Yes
--- NOTE | 2025-05-29 20:11 | DI.RAD_ITS ---
Exam(s) XR FOOT RT COMPLETE EXAM: XR FOOT RT COMPLETE CLINICAL HISTORY: R 5th mt pain. TECHNIQUE: 2D digital imaging was performed. Three views. COMPARISON: No exams were available for comparison FINDINGS: BONES: No acute fracture is present. No bony destructive lesion is seen. JOINTS: No dislocation present. SOFT TISSUE: Normal. IMPRESSION: Unremarkable radiographs of the right foot. The preliminary [facility] report was reviewed. DATA REPOSITORY: RADIATION DOSE DELIVERED:
--- NOTE | 2025-05-29 20:11 | DI.RAD_ITS ---
Exam(s) XR ANKLE RT COMPLETE EXAM: XR ANKLE RT COMPLETE CLINICAL HISTORY: R ankle pain, lateral mal.. TECHNIQUE: 2D digital imaging was performed. Three views. COMPARISON: No exams were available for comparison FINDINGS: BONES: No acute fracture is present. No bony destructive lesion is seen. JOINTS: The ankle mortise is normally aligned. SOFT TISSUE: Normal. IMPRESSION: Unremarkable radiographs of the right ankle. The preliminary [facility] report was reviewed. DATA REPOSITORY: RADIATION DOSE DELIVERED:
[2025-05-29 20:26] VITALS: PULSE 81; RESP 18; O2SAT 96
--- NOTE | 2025-05-29 20:46 | DI.[facility]_ITS ---
PROCEDURE INFORMATION: Exam: XR Right Ankle Exam date and time: 05/29/2025 8:06 PM Age: 29 years old Clinical indication: Other: R ankle pain, lateral mal. TECHNIQUE: Imaging protocol: Radiologic exam of the right ankle. Views: 3 or more views. COMPARISON: CR XR FOOT RT COMPLETE 05/29/2025 8:03 PM FINDINGS: Bones/joints: Normal. Soft tissues: Normal. IMPRESSION: No acute findings. Dictated and Authenticated by: Jimbo Tam MD. Orderin Jossue Rosenbaum MD
--- NOTE | 2025-05-29 20:46 | DI.[facility]AD_ITS ---
PROCEDURE INFORMATION: Exam: XR Right Foot Exam date and time: 05/29/2025 8:03 PM Age: 29 years old Clinical indication: Other: R 5th mt pain TECHNIQUE: Imaging protocol: Radiologic exam of the right foot. Views: 3 or more views. COMPARISON: No relevant prior studies available. FINDINGS: Bones/joints: Normal. Soft tissues: Normal. IMPRESSION: No acute findings. Dictated and Authenticated by: Jimbo Tam MD. Orderin Jossue Rosenbaum MD
== END 2025-05-29 20:41 | disposition home or self-care (01) ==
PROVIDERS: Emergency Provider Physician Assistant; PCP Physician Assistant Medical
DX: S93.401A Sprain of unspecified ligament of right ankle, initial encounter (principal); X50.1XXA Overexertion from prolonged static or awkward postures, initial encounter; Y93.01 Activity, walking, marching and hiking; Y92.018 Other place in single-family (private) house as the place of occurrence of the external cause
CPT/HCPCS: 99283; 73610; 73630

== ENCOUNTER 2025-06-27 20:03 | Emergency (ER) | payer MEDICAID, SELFPAY ==
[2025-06-27 20:07] VITALS: BP 125/85; PULSE 76; RESP 20; TEMP 37.3; O2SAT 99
--- NOTE | 2025-06-27 20:21 | ED.GENADUL_ITS ---
Discharge Plan Disposition Patient Disposition: Home Discharge Details Clinical Impression: Ganglion cyst of tendon sheath of hand Primary Care Provider: Danya Sheets ED Provider: Tomas Sutton Home Meds and New Rx's Prescriptions: No Action No Known Home Meds Discharge Instructions Instructions: Ganglion Cyst (DC) Additional Instructions: As discussed, I suspect your symptoms are secondary to a ganglion cyst. Please follow-up with the orthopedics clinic for further management. Please follow-up with your primary care provider regarding your visit to the emergency department today. Be sure to discuss results of all test performed here today to include radiology, and laboratory testing as well as results for any pending cultures. Should your symptoms worsen, or if you develop new concerning symptoms, please return immediately emergency department for further evaluation. Referrals: Bean Resendiz MD [ [facility] STAFF PHYSICIAN, Orthopaedic Surgical] HPI General Date/Time Provider Initiated Documentation: 06/27/25 20:08 . HPI Narrative: MDM/Narrative: 29-year-old female with hand pain and lump for 6 months, now painful. X-rays show no acute injuries. Recommend anti-inflammatories for pain. Suspect ganglion cyst. Referral to orthopedic surgeon for further evaluation and potential procedure. Really discharge: Monitor for infection signs (redness, fevers, chills, nausea, vomiting). Follow-Up: Referral to orthopedic surgeon. Contact orthopedic clinic if no follow-up call received in a few days. This document was created with assistance from [employer]. The patient consented to its use. HPI: The patient is a 29-year-old female presenting with a 6-month history of hand pain and a palpable lump. The pain acutely exacerbated this morning and intensifies with applied pressure. She denies experiencing pyrexia or chills. The patient is employed at a daycare, which involves extensive manual activities. She has no history of fractures. She administered acetaminophen at 0500 hours. ROS: Negative besides as mentioned above Exam: Vital signs: Reviewed. General Appearance: Alert and oriented. No acute distress. HEENT: NCAT, EOMI, not icteric. External ears normal. No rhinorrhea. Moist mucous membranes. Neck: Supple, full range of motion, no observable masses, No meningeal sign. Respiratory: No Respiratory distress. No tachypnea. Cardiovascular: Radial pulses 2+ bilaterally. Gastrointestinal: Soft, nondistended, No rebound tenderness. Back: No midline tenderness to palpation or palpable step-offs of the C/T/L spine. Musculoskeletal: Mobile, minimally tender pea-sized mass over dorsum of left hand. Wrist and finger flexion/extension intact. Skin: No erythema, induration, fluctuation. Neurological: Neurovascular status intact bilaterally. Psychiatric: Appropriate for situation. Radiology: X-ray left hand 3 views: No acute findings as read by me Related Data Home Medications ?Medication ?Instructions ?Recorded ?Confirmed Unknown [No Known Home Meds] 06/27/25 1 Allergies Allergy/AdvReac Type Severity Reaction Status Date / Time oxytocin (From Pitocin) Allergy Intermediate Hives Unverified 06/27/25 20:12 General Stated Complaint: Orthopedic AYSE: 4 Course Vital Signs Vital signs: Vital Signs Temperature 37.3 C 06/27/25 20:07 Pulse 76 06/27/25 20:07 Respiratory Rate 20 06/27/25 20:07 Blood Pressure 125/85 06/27/25 20:07 Pulse Oximetry 99 06/27/25 20:07 Temperature 37.3 C 06/27/25 20:07 Pulse 76 06/27/25 20:07 Respiratory Rate 20 06/27/25 20:07 Blood Pressure 125/85 06/27/25 20:07 Blood Pressure Position Sitting 06/27/25 20:07 Pulse Oximetry 99 06/27/25 20:07 Oxygen Delivery Method Room Air 06/27/25 20:07 Oxygen Flow Rate 0 06/27/25 20:07 PFSH All Active Problems (Updated 06/27/25 @ 20:26 by Tomas Sutton MD) Ganglion cyst of tendon sheath of hand (Acute) Sprain of right ankle (Acute) Medical History examination or test, positive result (07/08/15) Surgical History Previous section S/P Family History Mother Mental disorder depression with medications Father No problems noted. Sister No problems noted. Social History Smoking/Tobacco Use Status: Never Smoking risk assessment performed?: Yes Alcohol Intake: current Alcohol Intake frequency: a few times a month Drug use: Never Substance use type: does not use Do you feel safe at home: Yes Do you feel safe in your relationship?: Yes PAWSS Have you Been Recently Intoxicated or Drunk Within the Last 30 days?: No Have you Ever Experienced Previous Episodes of Alcohol Withdrawal?: No Have you ever Experienced Withdrawal Seizures?: No Have you ever Experienced Delirium Tremens(DT)s?: No Have you ever undergone Alcohol Rehabilitation Treatment (i.e, inpt ot outpatient treatment programs)?: No Have you ever Experienced Blackouts?: No Have you ever Combined Alcohol with other Downers within the last 90 days?: No Have you ever Combined Alcohol with any other Substance of Abuse during the last 90 days?: No Positive Blood Alcohol level on Presentation? [PCS.BAL]: No Evidence of Increased Autonomic Activity (i.e. HR>120, tremor, sweating, agitation, nausea)?: No Result: 0
[2025-06-27 21:04] VITALS: PULSE 88; RESP 20; O2SAT 96
--- NOTE | 2025-06-27 21:16 | DI.RAD_ITS ---
Exam(s) XR HAND LT COMPLETE EXAM: XR HAND LT COMPLETE CLINICAL HISTORY: left hand pain. TECHNIQUE: 2D digital imaging was performed. Three views. COMPARISON: CR RIGHT HAND COMPLETE from 01/20/2015 FINDINGS: BONES: No acute fracture is present. No bony destructive lesion is seen. JOINTS: No dislocation present. SOFT TISSUE: Normal. IMPRESSION: Unremarkable radiographs of the left hand. The preliminary [facility] report was reviewed. DATA REPOSITORY: RADIATION DOSE DELIVERED:
--- NOTE | 2025-06-27 23:28 | DI.[facility]_ITS ---
PROCEDURE INFORMATION: Exam: XR Left Hand Exam date and time: 06/27/2025 8:56 PM Age: 29 years old Clinical indication: Left hand pain TECHNIQUE: Imaging protocol: Radiologic exam of the left hand. Views: 3 or more views. COMPARISON: No relevant prior studies available. FINDINGS: Bones/joints: Normal. Soft tissues: Normal. IMPRESSION: No acute findings. Dictated and Authenticated by: Jemima Smith MD. Orderin Herman Marin MD
== END 2025-06-27 21:08 | disposition home or self-care (01) ==
PROVIDERS: Emergency Provider General Practice; PCP Physician Assistant Medical
DX: M67.442 Ganglion, left hand (principal)
CPT/HCPCS: 99283 ×2; 73130

== ENCOUNTER 2025-07-07 07:04 | Emergency (ER) | payer MEDICAID, SELFPAY ==
[2025-07-07 07:09] VITALS: BP 128/80; PULSE 77; RESP 16; TEMP 36.4; O2SAT 100
--- NOTE | 2025-07-07 07:15 | DI.RAD_ITS ---
Exam(s) XR ANKLE LT COMPLETE EXAM: XR ANKLE LT COMPLETE CLINICAL HISTORY: pain s/p fall. TECHNIQUE: 2D digital imaging was performed. COMPARISON: CR,XR XR ANKLE RT COMPLETE from 05/29/2025 FINDINGS: 3 views No evidence of acute fracture or widening the ankle mortise. Talar dome unremarkable. Bone density normal. No osseous lesions. Minimal soft tissue swelling. No osseous tarsal coalition IMPRESSION: No acute osseous findings in the ankle. DATA REPOSITORY: RADIATION DOSE DELIVERED:
--- NOTE | 2025-07-07 07:15 | DI.RAD_ITS ---
Exam(s) XR FOOT LT COMPLETE EXAM: XR FOOT LT COMPLETE h CLINICAL HISTORY: pain s/p fall. TECHNIQUE: 2D digital imaging was performed. COMPARISON: CR,XR XR FOOT RT COMPLETE from 05/29/2025 FINDINGS: 3 views No evidence of acute fracturehh nor diastasis of the Lisfranc joint. Great toe metatarsophalangeal joint appears unremarkable as do the other articulations of the foot. Foot arches maintain. Bone density normal. No significant osseous lesions. IMPRESSION: No acute osseous findings in the foot. DATA REPOSITORY: RADIATION DOSE DELIVERED:
--- NOTE | 2025-07-07 07:19 | W.ED.GENAD ---
Discharge Plan Disposition Patient Disposition: Home Condition: Stable Discharge Details Clinical Impression: Left ankle sprain, Sprain of left foot Primary Care Provider: Danya Sheets ED Provider: Oswaldo Mendoza Home Meds and New Rx's Prescriptions: Continued ibuprofen 600 mg tablet 600 mg PO Q6H PRNQty: 30 0RF acetaminophen [Tylenol] 325 mg tablet 975 mg PO ONCE PRNQty: 60 0RF Discharge Instructions Additional Instructions: Your x-rays on my read did not show any concerning findings at this time. If not improving within 1 week follow-up with your primary care provider or express care. If you feel significantly more ill or have severe worsening pain return to the emergency department for reevaluation. You can take 1000 mg of acetaminophen and 600 mg of ibuprofen every 6 hours as needed. Stand Alone Forms: Work Release HPI General Date/Time Provider Initiated Documentation: 07/07/25 07:05. Limitations to Documentation: no limitations. Information obtained by: patient. History of Present Illness 29 year old F presents to the emergency department with the chief complaint of left ankle and foot pain s/p fall last night, described as moderate, Quality is described as aching, and is localized to the left and lower extremity. Patient reports no radiation. Patient started experiencing this day(s) (1) and it has been constant. Rest improves symptom(s), Movement worsens symptoms . Patient notes no other symptoms.. Patient did receive the following treatments prior to arrival, none Related Data Home Medications Medication Instructions Recorded Confirmed acetaminophen 325 mg tablet 975 mg (3 x 325 mg) PO ONCE PRN 06/27/25 07/07/25 (Tylenol) #60 tabs ibuprofen 600 mg tablet 600 mg PO Q6H PRN #30 tabs 06/27/25 07/07/25 Previous Rx's Medication Instructions Recorded acetaminophen 325 mg tablet 975 mg (3 x 325 mg) PO ONCE PRN 06/27/25 (Tylenol) #60 tabs ibuprofen 600 mg tablet 600 mg PO Q6H PRN #30 tabs 06/27/25 Allergies Allergy/AdvReac Type Severity Reaction Status Date / Time oxytocin (From Pitocin) Allergy Intermediate Hives Unverified 07/07/25 07:11 General Stated Complaint: Orthopedic AYSE: 4 Review of Systems All systems reviewed & are unremarkable except as noted in HPI and below Constitutional Constitutional: Denies chills, Denies fever(s) and Denies weakness Cardiovascular Cardiovascular: Denies chest pain Gastrointestinal Gastrointestinal: Denies abdominal pain and Denies vomiting Neurologic Neurologic: Denies weakness Exam Const General: no acute distress Orientation: alert HENMT Head: normal to inspection Neck Neck: normal visual inspection Resp Effort & Inspection: normal respiratory effort and able to speak in complete sentences Cardio Rate: regular rate Skin General skin exam: no rashes or lesions noted Neuro General: patient alert and patient oriented x3 Extrem General: normal to inspection, full ROM and capillary refill normal Psych Mental Status: mental status grossly normal Course Vital Signs Vital signs: Vital Signs Temperature 36.4 C L 07/07/25 07:09 Pulse 77 07/07/25 07:09 Respiratory Rate 16 07/07/25 07:09 Blood Pressure 128/80 07/07/25 07:09 Pulse Oximetry 100 07/07/25 07:09 Temperature 36.4 C L 07/07/25 07:09 Pulse 77 07/07/25 07:09 Respiratory Rate 16 07/07/25 07:09 Blood Pressure 128/80 07/07/25 07:09 Blood Pressure Position Sitting 07/07/25 07:09 Pulse Oximetry 100 07/07/25 07:09 Oxygen Delivery Method Room Air 07/07/25 07:09 Oxygen Flow Rate 0 07/07/25 07:09 Pain Level 10 07/07/25 07:09 Medical Decision Making 29-year-old female comes in with left ankle and foot pain. She says last night she was walking and stepped in a small hole which caused her to trip. She did not hit her head or sustain other injuries. She has pain in the anterior left ankle and the mid left foot. Denies any pain elsewhere. She is well-appearing speaking in full sentences. She has no signs of trauma to the head. She has no visible or palpable deformities anywhere in the ankle or foot. She has tender in the midfoot and also anterior ankle. She has no posterior ankle tenderness and she does have full range of motion of the ankle. I suspect sprain versus contusion but will obtain x-rays to evaluate for fracture. X-rays on my read show no concerning findings. Current turnaround time for virtual radiology is 100 minutes. Patient is stable and I discussed results with her and she does not want to stay for the virtual radiology read, I will call her if they see anything of concern. I will provide her with crutches and a walking boot. She will follow-up with her PCP or express care if not improving return precautions given Differential Diagnosis Differential Diagnosis: sprain, contusion, fx PFSH All Active Problems (Updated 07/07/25 @ 08:31 by Oswaldo Mendoza MD) Sprain of left foot (Acute) Left ankle sprain (Acute) Ganglion cyst of tendon sheath of hand (Acute) Medical History examination or test, positive result (07/08/15) Surgical History Previous section S/P Family History Mother Mental disorder depression with medications Father No problems noted. Sister No problems noted. Social History Smoking/Tobacco Use Status: Never Smoking risk assessment performed?: Yes Alcohol Intake: current Alcohol Intake frequency: a few times a month Drug use: Never Substance use type: does not use Do you feel safe at home: Yes Do you feel safe in your relationship?: Yes
--- NOTE | 2025-07-07 09:05 | DI.VRAD_ITS ---
PROCEDURE INFORMATION: Exam: XR Left Foot Exam date and time: 07/07/2025 7:57 AM Age: 29 years old Clinical indication: Injury or trauma; Other: Pain S/P fall TECHNIQUE: Imaging protocol: Radiologic exam of the left foot. Views: 3 or more views. COMPARISON: No relevant prior studies are available for comparison. FINDINGS: No fracture seen. IMPRESSION: No fracture seen. Dictated and Authenticated by: Emerita Yuen MD. Orderin Kelly Chacon MD
--- NOTE | 2025-07-07 09:05 | DI.VRAD_ITS ---
PROCEDURE INFORMATION: Exam: XR Left Ankle Exam date and time: 07/07/2025 7:56 AM Age: 29 years old Clinical indication: Injury or trauma; Other: Pain S/P fall TECHNIQUE: Imaging protocol: Radiologic exam of the left ankle. Views: 3 or more views. COMPARISON: No relevant prior studies available. FINDINGS: Bones/joints: No fracture seen. Ankle mortise preserved. Soft tissues: Mild soft tissue swelling. IMPRESSION: No acute fracture seen. Dictated and Authenticated by: Emerita Yuen MD. Orderin Kelly Chacon MD
== END 2025-07-07 08:59 | disposition home or self-care (01) ==
PROVIDERS: Emergency Provider Emergency Medicine; PCP Physician Assistant Medical
DX: S93.602A Unspecified sprain of left foot, initial encounter (principal); S93.402A Sprain of unspecified ligament of left ankle, initial encounter; X58.XXXA Exposure to other specified factors, initial encounter
CPT/HCPCS: 99283; 99284; 81025; 73610; 73630